=== PATIENT | female | born 2000 | race Caucasian/White ===

== ENCOUNTER 2022-05-09 12:26 | Emergency (ER) | payer MEDICAID ==
[~2022-05-09] VITALS: Ht 170.2 cm; Wt 114.8 kg
[2022-05-09 12:39] VITALS: BP 134/91
--- NOTE | 2022-05-09 12:46 | NUR ---
PT AMBULATED TO BED 5
[2022-05-09] MEDS ORDERED: LIDOCAINE 2% 1000 MG/50 ML VIAL INJ ONE (13:05)
--- NOTE | 2022-05-09 13:05 | NUR ---
22YO FEMALE PT C/O UPPER GLUTE PAIN X1WEEK. PRESENTS WITH REDDENED ABSCESS AND REPORTS YELLOW PUS DISCHARGE X3DAYS. ACTIVE DRAINAGE NOTED. DENIES RELIEF AFTER OTC OINTMENT . DENIES N/V/D, FEVER, CHILLS OR SOB. PT AAOX4, NO VISIBLE DISTRESS. HOB POSITIONED PER COMFORT HX:DENIES NKA
--- NOTE | 2022-05-09 13:10 | NUR ---
MD YOU AT BEDSIDE FOR EVALUATION
[2022-05-09] MEDS ORDERED: SULF-58 PO (14:00)
--- NOTE | 2022-05-09 15:02 | NUR ---
HR REMAINS IN 115-120S, DR YOU AWARE AND AT BEDSIDE EVALUATING PT. PT DOES NOT WANT LABS/FLUIDS. OKAY TO DC PER DR YOU
[2022-05-09 15:16] VITALS: BP 117/74
--- NOTE | 2022-05-09 15:16 | NUR ---
Note simon in EDM - 05/09/22 at 1524 by PHSEP Patient discharged with v/s stable. Written and verbal after care instructions FOR INCISION AND DRAINAGE given and explained. Patient alert, oriented and verbalized understanding of instructions. Ambulatory with steady gait. All questions addressed prior to discharge. ID band removed. Patient advised to follow up with PMD. Rx of BACTRIM TAB given. Opportunity to ask questions provided and answered.
--- NOTE | 2022-05-09 15:16 | NUR ---
Patient discharged . Written and verbal after care instructions FOR INCISION AND DRAINAGE given and explained. Patient alert, oriented and verbalized understanding of instructions. Ambulatory with steady gait. All questions addressed prior to discharge. ID band removed. Patient advised to follow up with PMD. Rx of BACTRIM TAB given. Opportunity to ask questions provided and answered.
--- NOTE | 2022-05-09 15:18 | NUR ---
The patient's care was reviewed and supervised by Tianna Doran RN.
== END 2022-05-09 15:16 | disposition home or self-care (01) ==
LOC: MED 12:26
DX: L02.31 Cutaneous abscess of buttock (principal); Z79.2 Long term (current) use of antibiotics
CPT/HCPCS: 10060; 81025; 99285; J2001

== ENCOUNTER 2022-05-13 17:49 | Emergency (ER) | payer MEDICAID ==
[~2022-05-13] VITALS: Ht 170.2 cm; Wt 107.5 kg
[~2022-05-13 17:49] MED LIST: SULF-58 PO
[2022-05-13 18:06] VITALS: BP 131/78
--- NOTE | 2022-05-13 19:06 | NUR ---
Patient discharged with v/s stable. Written and verbal after care instructions ABOUT PILONIDAL CYST DRAINAGE given and explained. Patient verbalized understanding. Ambulatory with steady gait. All questions addressed prior to discharge. Advised to follow up with PMD.
== END 2022-05-13 19:06 | disposition home or self-care (01) ==
LOC: MED 17:49
DX: Z48.01 Encounter for change or removal of surgical wound dressing (principal); Z79.2 Long term (current) use of antibiotics
CPT/HCPCS: 99281